=== PATIENT | female | born 1955 | race Caucasian/White ===

== ENCOUNTER 2017-02-10 00:10 | Day surgery (SDC) | payer OTHER ==
[~2017-02-10] VITALS: Ht 142.2 cm; Wt 65.0 kg
[2017-02-10] MEDS ORDERED: fentaNYL-PF 50 mCg/mL 2 mL Inj ONE (00:11)
[2017-02-10] MEDS ORDERED: Ondansetron 2 mg/mL 2 mL Inj ONE (00:11)
[2017-02-10] MEDS ORDERED: Propofol 10,000 mCg/mL 20 mL Inj ONE (00:11)
[2017-02-10] MEDS ORDERED: LISI-567 PO (00:29)
[2017-02-10] MEDS ORDERED: Dexamethasone 4 mg/mL Inj IVPUSH PRN (00:40)
[2017-02-10] MEDS ORDERED: Lactated Ringer's 500 ML IV PRN (00:40)
[2017-02-10] MEDS ORDERED: Ondansetron 2 mg/mL 2 mL Inj IVPUSH PRN (00:40)
[2017-02-10] MEDS ORDERED: Lactated Ringer's 1,000 ML IV ONE (00:40)
[2017-02-10] MEDS ORDERED: fentaNYL-PF 50 mCg/mL 2 mL Inj IVPUSH PRN (00:40)
[2017-02-10] MEDS ORDERED: hydrALAZINE 20 mg/mL Inj IVPUSH PRN (00:40)
[2017-02-10] MEDS ORDERED: Labetalol 5 mg/mL 4 mL Inj IV PRN (00:40)
[2017-02-10] MEDS ORDERED: EPHEDrine Sulfate 50 mg/mL Inj IVPUSH PRN (00:40)
[2017-02-10] MEDS ORDERED: Atropine 0.4 mg/mL Inj IVPUSH PRN (00:40)
[2017-02-10] MEDS ORDERED: HYDROmorphone 1 mg/mL Inj IVPUSH PRN (00:40)
[2017-02-10] MEDS ORDERED: MetoCLOpramide 5 mg/mL 2 mL Inj IVPUSH PRN (00:40)
[2017-02-10] MEDS ORDERED: Phenylephrine 10,000 mCg/mL Inj IVPUSH PRN (00:40)
[2017-02-10] MEDS ORDERED: Lactated Ringer's 1,000 ML IV SCH (00:40)
--- NOTE | 2017-02-10 00:40 | PCM.HPANE ---
Patient Data Date of Service: Feb 10, 2017 Surgeon Admitting Provider: Attending Provider:Verna Mendieta MD Primary Care Physician:[facility] Shabnam-Amber Pena Other Provider: Reason for Visit Food Impaction Ht/WT & BMI Height (Feet): 4 Height (Inches): 8 Weight (Kilograms): 65 Body Mass Index 32.00 Allergies Coded Allergies: No Known Allergies (Unverified , 02/10/17) Past Anesthesia History Anesthesia History: Denies:: Anesthesia Reactions, Fam Anesthesia Reaction, Fam Malignant Hypertherm, Malignant Hyperthermia Diabetes History Hx Diabetes?: No MRSA MRSA: No Medications Hypertension Medication: Yes Home Meds Incl Beta Steve: No Reported Medications Lisinopril 20 Mg [id number] Mg PO BID 30 Days Ref 0 02/10/17 History History of ENT Problems?: No HEENT History: Positive for:: Dysphagia Denture Type: Full- Upper Full- Lower Teeth Condition: No Teeth Hx of Heart Problems?: Yes Cardiovascular History: Positive for:: Hypertension Denies:: AICD Pacemaker Valvular Heart Disease Hx of Respiratory Problem?: No Respiratory History: Denies:: Asthma Hx Neurologic Problems?: No Neurological History: Denies:: CVA Hx of GI Problems?: Yes Hx of Problems?: No Female Hx: Denies:: Currently (jase) Hx Musculoskeletal Problems?: Yes Hx Surgeries?: Yes (bilateral legs, vitamin d deficiency since child) Hx Any Other Health Problems?: No Hx Diabetes: No Hx Alcohol Use: No Stop/Bang Treated for Sleep Apnea?: No Do You Have a CPAP Machine?: No S-Snoring: Do You Snore Loudly: No T-Tired: feel tired, fatigued: No O-Obsered: Observed not breath: No P-Blood Pressure: treated: Yes B- Body Mass Index > 35 kg/m2: No A- Age over 50: Yes N- Neck Large Circumference: No G- Gender Male: No KAMILLE Total Score: 2 KAMILLE Risk Assessment: Low Risk, <3 Yes Risk Assessment Category Category 1A: Patient has history of documented sleep apnea, and HAS NOT received any narcotic, sedative or anesthesia administration during this stay. Category 1B: Patient has history of documented sleep apnea, and HAS received any narcotic , sedative or anesthesia administration during this stay Category 2: Patient has SUSPECTED Obstructive Sleep Apnea, and HAS received any narcotic , sedative or anesthesia administration during this stay. Category 3: Patient has SUSPECTED Obstructive Sleep Apnea and HAS NOT received narcotic, sedative or anesthesia administration during this stay. Category 4: Outpatient in Procedural Areas with known sleep apnea or who screen positive for High Risk via the STOP/BANG questionnaire. Exam Exam General Appearance: Alert, Oriented X3, Cooperative, Mild Distress HEENT/AIRWAY: MP 2 Lungs: Clear to Auscultation, Normal Air Movement Heart: Exam Unremarkable, Regular Rate/Rhythm, No Murmurs/Rubs/Gallops Plan Impression Patient chart reviewed, patient interviewed and anesthestic plan with risks, benefits, and alternatives discussed, and informed consent obtained. NPO per Anesth. Guidelines: No ASA Physical Status: ASA2 Plus Emergency Anesthetic Plan: GA Bene/Risks/Altern/Consents: Yes HP Complete Prior to Induction: Yes Vernon Jeffries MD Feb 10, 2017 00:40
[2017-02-10 01:20] VITALS: BP 133/70; PULSE 84; RESP 11; O2SAT 97
--- NOTE | 2017-02-10 01:22 | PCM.ANEP1 ---
Post Anesthesia PACU Phase 1 Assessment Date of Service: Feb 10, 2017 Vital Signs 36.4 133/70 91 16 96% NC Anesthetic Administered: GA Level of Alertness: Awake, talking CASSIDY's with Equal Strength: Yes Pain: No Nausea or Vomiting: No CV Function & Hydration Stable: Yes Airway Device: Oxygen Delivery: Room Air Lungs: Clear to Auscultation, Normal Air Movement PACU Phase 2 Assessment Complications: No Follow up Care: No Patient Instructions Provided: Yes Vernon Jeffries MD Feb 10, 2017 01:22
[2017-02-10 01:25] VITALS: BP 116/79; PULSE 85; RESP 14; O2SAT 94
[2017-02-10 01:30] VITALS: BP 116/72; PULSE 84; RESP 15; O2SAT 94
[2017-02-10 01:35] VITALS: BP 131/78; PULSE 85; RESP 17; O2SAT 95
[2017-02-10 01:40] VITALS: BP 118/66; PULSE 77; RESP 16; O2SAT 96
--- NOTE | 2017-02-10 01:41 | ENDO ---
[address] [address] ENDOSCOPY PROCEDURE PATIENT: ARABELLA VARGAS : 1955 MR#: [id number] ADMIT: 02/10/2017 JOB ID: [id number] PROCEDURE: Esophagogastroduodenoscopy. INDICATION FOR ENDOSCOPY: Food bolus obstruction. Please see Dr. Vernon Jeffries's anesthesia report for details regarding general anesthesia. INSTRUMENT USED: [id number]. PROCEDURE DETAILS: After informed consent was obtained, the patient was brought to the GI suite, where she was placed under general anesthesia after a time-out was performed. She was then placed in a left lateral decubitus position and a bite block was placed. The standard EGD scope was inserted through the bite block and we were able to advance it to approximately 18 cm, where we encountered a food bolus just below the upper esophageal sphincter. With mild gentle pressure, we were able to advance the food bolus, which appeared to be a white piece of meat, into the stomach without difficulty. The scope was then advanced to the second portion of the duodenum. Examined portions of duodenum appeared unremarkable. Normal-appearing pylorus, antrum and gastric body. Retroflexed views in the gastric body revealed a food bolus that was previously in the esophagus in the fundus of the stomach. The cardia appeared unremarkable. Fundus appeared unremarkable. The scope was then withdrawn and the GE junction was examined, which appeared regular at 35 cm, with a normal-appearing Z-line. Examined portions of the esophagus appeared unremarkable. There was some minor erythema noted at the level of the food bolus just below the upper esophageal sphincter. However, there was no obvious strictures or narrowing appreciated. Multiple random biopsies were obtained in the midesophagus. IMPRESSION: Food bolus obstruction just below the upper esophageal sphincter, which we were able to resolve with gentle advancement of the food bolus into the stomach. RECOMMENDATIONS: 1. Chew food well. 2. Follow up on biopsy results. Call the office in one week to get results. 3. Follow up in the GI clinic as needed. COMPLICATIONS: None. ESTIMATED BLOOD LOSS: 0. CC: [facility]
[2017-02-10 01:47] VITALS: BP 115/74; PULSE 84; RESP 16; O2SAT 94
--- NOTE | 2017-02-10 02:12 | CONS ---
[address] [address] CONSULTATION REPORT PATIENT: ARABELLA VARGAS : 1955 MR#: [id number] ADMIT: 02/10/2017 JOB ID: [id number] DATE OF SERVICE: 02/10/2017 REASON FOR CONSULTATION: Food bolus obstruction. PHYSICIAN REQUESTING CONSULTATION: Dr. Abdul from [facility]. The patient has been transferred from [facility] to [facility] as Endoscopy Service is reportedly not available at [facility]. HISTORY OF PRESENT ILLNESS: This 61-year-old woman, who has a history of arthritis, but otherwise is healthy, was eating pork at around 6 o'clock this afternoon when, after the second bite of pork, she was not able to swallow any further. She states she did not have her bottom teeth in to chew and, therefore, the piece of meat that she swallowed was not well chewed. Following that a bite of food, she was unable to swallow any liquids and was not able to tolerate her saliva. She tried drinking liquids; however, was unsuccessful in getting the food bolus to go down. At this point, the patient presented to [facility]. I then received a call and had recommended that they try glucagon. This was eventually tried by the ER physician there and, after there was no improvement after approximately two hours, I was called again and requested the patient be transferred here for further management as Endoscopy Services are not available at [facility], per the ER physician there. Upon my interview with the patient, the patient states that she is not able to swallow her saliva. She denies any chest pain, any shortness of breath. She denies any prior history of food bolus obstruction. She denies any history of heartburn. She reports no prior endoscopies. She does have a history of chronic NSAID use in the past for arthritis, but states, over the last several weeks, she has not used it very frequently. PAST MEDICAL HISTORY: Significant for: 1. Hyperlipidemia. 2. Chronic arthritis. PAST SURGICAL HISTORY: None. FAMILY HISTORY: Noncontributory. SOCIAL HISTORY: She does smoke cigarettes daily and has done so for approximately 40 years. She states she is trying to cut down and currently smokes about 4-5 cigarettes a day. She denies any daily alcohol use. MEDICATIONS: Include medicines for hyperlipidemia, which she does not know the name of. ALLERGIES: She has no known drug allergies. REVIEW OF SYSTEMS: Her 10-point review of systems is otherwise unremarkable. PHYSICAL EXAMINATION: She is afebrile. Her vital signs are stable. Generally, she is a middle-aged appearing woman who appears to be in mild distress and is not able to swallow saliva. HEENT: No pallor. No icterus. Oropharynx is clear. Chest exam: Clear to auscultation bilaterally. Cardiovascular exam: S1, S2 heard. Abdomen is benign. Extremities: Without edema. DIAGNOSTIC DATA: No laboratory data to review. A CT scan, that was performed at [facility], per verbal report received from Dr. Abdul, revealed evidence of food bolus obstruction in the proximal esophagus. ASSESSMENT AND PLAN: A 61-year-old woman presenting with food bolus obstruction. I discussed with the patient regarding risks and benefits of endoscopy for further management of her food bolus and she is agreeable to proceed. She is unable to tolerate her saliva. I have requested Anesthesia assistance for sedation. Following endoscopy, the patient can be discharged home. She may need possible followup depending on endoscopic findings. CC[facility].
--- NOTE | 2017-02-11 10:54 | PATH ---
SURGICAL PATHOLOGY Attending Physician:Barry Ward CASE STATUS: Signed Out PATIENT NAME: ARABELLA VARGAS PID: [id number] : 1955 DATE COLLECTED:02/10/2017 16:32 SPECIMEN: Esophagus, Biopsy CLINICAL HISTORY: 1. MID ESOPHAGEAL BIOPSY FINAL DIAGNOSIS: 1.MID ESOPHAGEAL BIOPSY: FRAGMENTS OF SQUAMOUS EPITHELIUM WITH MINIMAL CHRONIC INFLAMMATION AND MILD NONSPECIFIC REACTIVE CHANGES. Negative for dysplasia and malignancy. Negative for intraepithelial eosinophils. ICD10 K20.9 GROSS DESCRIPTION: The specimen is received in one formalin filled container labeled with the patient's name, sublabeled "mid esophageal" and consists of 2 portions of tissue which aggregate to 0.3 x 0.2 x 0.2 CM. The specimen is entirely submitted in one cassette. 02/10/2017 [facility] MICRO DESCRIPTION: See diagnosis. ICD-9 CODES: CPT CODES: 1: 43881 Electronically Signed Out Fred Koehler MD [facility] [address], [place] [address] Technical component performed at [facility], [facility] [address], [place], [address]
== END 2017-02-10 23:59 | disposition home or self-care (01) ==
LOC: END 00:10
PROVIDERS: ATTEND Internal Medicine Gastroenterology
DX: K22.2 Esophageal obstruction (principal); E78.5 Hyperlipidemia, unspecified; M19.90 Unspecified osteoarthritis, unspecified site; F17.210 Nicotine dependence, cigarettes, uncomplicated
CPT/HCPCS: 43239; 43247; J2405; J3010; J7120